=== PATIENT | male | born 1950 | race Caucasian/White ===

== ENCOUNTER 2020-06-11 14:47 | Emergency (ER) | payer MEDICARE, MEDICAID, SELFPAY ==
[2020-06-11] VITALS (7 sets, daily range): BP systolic 116–159; BP diastolic 66–95; PULSE 78–114; RESP 18–25; TEMP 36.6–37.2; O2SAT 90–99; BMI 34.7
--- NOTE | 2020-06-11 | ECG_ITS ---
APPROVED REPORT Exam: Resting ECG HR:106 bpm ECG Measurements Heart Rate [address] 150 P 55 QRSd 104 QRS -52 QT 366 T 104 QTc 486 <Conclusion> sinus rhythm,PVC'S Noted Left axis deviation LAHB Abnormal ECG Electronically signed by : Juwan Holden, 06/12/2020 15:16:01
--- NOTE | 2020-06-11 14:55 | ECG_ITS ---
APPROVED REPORT Exam: Resting ECG HR:105 bpm ECG Measurements Heart Rate 105 AXES PA 92 P 52 QRSd 110 QRS -64 QT 372 T 108 QTc 491 <Conclusion> Sinus tachycardia with short PA with occasional premature ventricular complexes and fusion complexes Left axis deviation,LAHB Incomplete RBBB Abnormal ECG Electronically signed by : Juwan Holden, 06/12/2020 09:03:46
--- NOTE | 2020-06-11 15:01 | XR_ITS ---
PROCEDURE: XR CHEST PORTABLE CLINICAL HISTORY: sob Smoking history, cough COMPARISON: CXR CHEST(2 VIEWS-NOT PORTABLE) from 05/27/2016 CXR2V XR chest 2V from 11/14/2018 CXR1VP XR chest portable from 01/07/[address] chest wo con from 01/07/2019 FINDINGS: The cardiomediastinal silhouette and pulmonary vascularity are within normal limits considering a somewhat poor inspiration. There is a somewhat ill-defined opacity right perihilar region likely representing atelectasis but a minimal infiltrate cannot be excluded. The left midlung field and perihilar region is obscured by the overlying left-sided pacemaker. There is minimal ill-defined opacity at the left lung base probably due to crowding of vascular markings. There are dual chamber electrodes in good position. There is no definite pleural fluid. However soft tissue detail is somewhat degraded in lower portion the chest due to the patient's obesity. IMPRESSION: Right perihilar atelectasis versus small infiltrate, left midlung field and left base somewhat suboptimally evaluated for the reasons mentioned above Dictated by: Dr. Bal Bower MD 06/11/2020 16:[address] Bal Bower MD in [place] 06/11/2020 16:31
[2020-06-11 15:11] LABS: ABG Base Excess -2.3 mmol/L (-2.4-2.3); ABG Oxygen Saturation 96 % (90-100); ABG PCO2 33.9 mmhg (35.0-45.0); ABG PH 7.43 mmol/L (7.35-7.45); ABG PO2 72.2 mmhg (80-100); ABG TCO2 23.1 mmhg (23-27)
[2020-06-11 15:12] LABS: Allen's Test Acceptable; Source Left Radial
--- NOTE | 2020-06-11 15:15 | [facility].EDSOB ---
ED Disposition Clinical Impression: Congestive heart failure Qualifiers: Heart failure type: systolic Heart failure chronicity: acute on chronic Qualified Code(s): I50.23 - Acute on chronic systolic (congestive) heart failure Disposition: Home, Self-Care Condition on Discharge: Fair Instructions: Heart Failure Prescriptions: Furosemide [Furosemide 40MG tAB] 40 mg PO DAILY #30 tab Transmission Status: Pending to [facility] Potassium Chloride [Klor-Con M10] 10 meq PO DAILY #30 tab.er.prt Transmission Status: Pending to [facility] Referrals: Andrea Sterling [Primary Care Provider] - - Critical Care Critical Care Time: No Attestation: On 06/11/20, the high probability of a clinically significant, sudden or life threatening deterioration of the following system(s) required my full and direct attention, intervention and personal management. The time I documented below is in addition to time spent performing reported procedures but includes the following listed in this critical care notation. Medical Decision Making - Slim Inquiry Pt receiving controlled substance: No Vital Signs: 06/11/20 14:49 06/11/20 15:12 06/11/20 15:39 Temperature 98.9 F Temperature Source Oral Pulse Rate [Right] 114 H 102 H 98 H Respiratory Rate 25 H 18 20 Blood Pressure [Right Arm] 157/85 H 116/66 137/88 Blood Pressure Mean [Right Arm] 109 82 104 Blood Pressure Source [Right Arm] Automatic Cuff Blood Pressure Position [Right Arm] Supine 02 Sat by Pulse Oximetry 90 L 93 L 94 L Oxygen Delivery Method Room Air Nasal Cannula Nasal Cannula Oxygen Flow Rate (LPM) 2 2 06/11/20 16:13 06/11/20 16:31 06/11/20 17:24 Temperature Temperature Source Pulse Rate [Right] 101 H 102 H 100 H Respiratory Rate 21 23 25 H Blood Pressure [Right Arm] 159/95 H 137/88 143/92 H Blood Pressure Mean [Right Arm] 116 104 109 Blood Pressure Source [Right Arm] Automatic Cuff Automatic Cuff Blood Pressure Position [Right Arm] Sitting Supine Supine 02 Sat by Pulse Oximetry 95 92 L 99 Oxygen Delivery Method Nasal Cannula Nasal Cannula Room Air Oxygen Flow Rate (LPM) 2 2 2 - Lab Data Lab results reviewed: Yes: I reviewed the patient's lab results. Lab Results 06/11/20 15:00: WBC 8.7, RBC 5.31, Hgb 16.0, Hct 48.2, MCV 90.8, MCH 30.1, MCHC 33.1, RDW 15.0, Plt Count 241, MPV 8.4, Neut % (Auto) 73.8, Lymph % (Auto) 19.2, [place] % (Auto) 6.0, Eos % (Auto) 0.7, Baso % (Auto) 0.3, Neut # (Auto) 6.5, Lymph # (Auto) 1.7, [place] # (Auto) 0.5, Eos # (Auto) 0.1, Baso # (Auto) 0.0 06/11/20 15:00: Sodium 141, Potassium 4.5, Chloride 103, Carbon Dioxide 30, Anion Gap 12.5, BUN 17, Creatinine 1.20, Estimated Creat Clear 101, Estimated GFR 60, Est GFR ( Amer) 73, Glucose 119 H, Calcium 9.1, Troponin I 0.05 H, NT-Pro-B Natriuret Pep 7110 H 06/11/20 15:00: Lactate 1.6 06/11/20 15:03: Specimen Source Left radial, O2 % Room air, ABG pH 7.43, ABG pCO2 33.9 L, ABG pO2 72.2 L, ABG HCO3 22.0, ABG Total CO2 23.1, ABG O2 Saturation 96, ABG Base Excess -2.3, Ant Test Acceptable 06/11/20 17:05: Troponin I 0.04 H Result diagrams: 06/11/20 15:00 06/11/20 15:00 Orders (Tests/Meds): ED MEDICATIONS Discontinued Medications Generic Name Dose Route Start Last Admin Trade Name Patricio PRN Reason Stop Dose Admin Albuterol/Ipratropium 3 ml 06/11/20 15:06 06/11/20 15:17 Duoneb 3ml Neb IH 06/11/20 15:07 3 ml ONCE ONE Administration Furosemide 40 mg 06/11/20 15:39 06/11/20 15:42 Lasix 40mg/4ml Vial IV 06/11/20 15:40 40 mg ONCE ONE Administration Methylprednisolone Sodium Succinate 125 mg 06/11/20 15:06 06/11/20 15:17 Solu-Medrol 125mg/2ml Vial IV 06/11/20 15:07 125 mg ONCE ONE Administration ORDERS Category Date Time Status Troponin I Q3H Lab 06/11/20 21:15 Ordered Blood Culture Stat Micro 06/11/20 15:00 Received 12-lead EKG Request [ECG Request by /Rashard] Stat Y 06/11/20 16:27 Ordered - Radiology Se[facility]
[2020-06-11 15:17] LABS: Basophils % 0.3 % (0.1-2.0); Eosinophils # 0.1 K/mm3 (0.0-0.4); Eosinophils % 0.7 % (0.1-12.0); Hematocrit 48.2 % (42.0-52.0); Lymphocytes # 1.7 K/mm3 (0.7-4.5); Lymphocytes % 19.2 % (10-50); Mean Corpuscular HGB Conc 33.1 g/dL (31.8-35.4); Mean Corpuscular Hemoglobin 30.1 pg (27.0-31.2); Mean Corpuscular Volume 90.8 fl (80-94); Mean Platelet Volume 8.4 fl (7.4-10.4); Monocytes # 0.5 K/mm3 (0.1-1.0); Neutrophils # 6.5 K/mm3 (1.8-7.8); Neutrophils % 73.8 % (37.0-80.0); Platelet Count 241 K/mm3 (142-424); Red Blood Count 5.31 M/mm3 (4.60-6.20); White Blood Count 8.7 K/mm3 (4.8-10.8)
[2020-06-11 15:20] LABS: Chloride 103 mmol/L (98-107); Potassium 4.5 mmoL/L (3.5-5.1); Sodium 141 mmol/L (136-145)
[2020-06-11 15:23] LABS: Anion Gap 12.5 mEq/L (5-15); Blood Urea Nitrogen 17 mg/dl (9-20); Calcium 9.1 mg/dl (8.4-10.2); Carbon Dioxide 30 mmol/L (22.0-30.0); Creatinine Clearance Estimated 101 mL/min (50-200); Estimated Glomerular Filt Rate 60 ml/min (>60); GFR (African American) 73 ML/MIN (>60); Glucose 119 mg/dl (74-100)
[2020-06-11 15:24] LABS: Lactic Acid 1.6 mmol/L (0.7-2.1)
[2020-06-11 15:33] LABS: NT Pro Brain Natriuretic Pep. 7110 pg/mL (0-125)
[2020-06-11 15:36] LABS: Troponin I 0.05 ng/ml (0.00-0.034)
--- NOTE | 2020-06-11 15:51 | PC.NURSE ---
Gave patient urinal and educated him that we need to monitor his urine output
--- NOTE | 2020-06-11 17:05 | PC.NURSE ---
pt had about 150 ouput about 1500
--- NOTE | 2020-06-11 17:06 | PC.NURSE ---
pt had 300 output of urine @1705
[2020-06-11 17:32] LABS: Troponin I 0.04 ng/ml (0.00-0.034)
== END 2020-06-11 17:53 | disposition home or self-care (01) ==
PROVIDERS: Emergency Provider Emergency Medicine; PCP Family Medicine
DX: I50.23 Acute on chronic systolic (congestive) heart failure (principal); Z95.0 Presence of cardiac pacemaker; F17.210 Nicotine dependence, cigarettes, uncomplicated; Z79.899 Other long term (current) drug therapy
CPT/HCPCS: 71045; 80048; 82803; 83605; 83880; 84484; 85025; 87040; 93005; 96374; 96375; 99284